=== PATIENT | male | born 1980 | race Caucasian/White ===

== ENCOUNTER 2018-01-10 10:23 | Emergency (ER) | payer OTHER ==
[~2018-01-10] VITALS: Ht 182.9 cm; Wt 84.4 kg
[~2018-01-10 10:23] MED LIST: AMOXICILLIN875 M1 PO; AUGMENTIN 875-1 EACH PO; BACTRIM DS TAB1 EACH PO; FIORICET 50-301 EACH PO; PERCOCET 5-3251 EACH PO; ZOFRAN ODT4 M1 PO
--- NOTE | 2018-01-10 13:23 | ED NECK/BACK PAIN COMPLAINT ---
History of Present Illness General Chief Complaint: General Adult Stated Complaint: C/O PAIN IN RT SIDE OF NECK Source: patient Exam Limitations: no limitations Vital Signs & Intake/Output Vital Signs & Intake/Output Vital Signs Date Time Temp Pulse Resp B/P B/P Pulse O2 O2 Flow FiO2 Mean Ox Delivery Rate 01/10 1226 Room Air 01/10 1028 98.4 95 18 143/93 98 Room Air Allergies Coded Allergies: bee venom protein (honey bee) (Severe, SWELLING 03/17/17) Reconcile Medications Amoxicillin 500 MG CAPSULE 1 CAP PO TID sore thoat Ketorolac Tromethamine 10 MG TABLET 1 TAB PO Q6P PRN sore throat pain patient received IM ketorolac in the emergency department Triage Note: 37 YO MALE TO TRIAGE FOR EVAL OF R SIDED NECK PAIN THAT RADIATES TO HEAD SINCE THIS AM, DENIES INJURY TO NECK. Triage Nurses Notes Reviewed? yes Onset: Gradual Duration: constant Quality/Severity: severe, sharpness HPI: Patient presents for evaluation of a severe constant right neck pain radiating up into the face that began this morning. Patient states it's a sharp tearing kind of pain that gets worse with swallowing and with head movement. He denies any associated fever or cold symptoms. He denies any known ill contacts. He denies prior episodes. Past History Travel History Traveled to [place] past 21 day No Medical History Any Pertinent Medical History? 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 No Review of Systems Review of Systems Constitutional: Reports: no symptoms. Eyes: Reports: no symptoms. Ears, Nose, Throat, Mouth: Reports: see HPI. Respiratory: Reports: no symptoms. Cardiovascular: Reports: no symptoms. Gastrointestinal/Abdominal: Reports: no symptoms. Musculoskeletal: Reports: see HPI. Skin: Reports: no symptoms. Neurological/Psychological: Reports: no symptoms. All Other Systems: Reviewed and Negative Physical Exam Physical Exam Neck: see below Comments: Patient examined after treatment with I am Toradol Gen.: Well-nourished, well-developed, no acute respiratory distress. Mildly uncomfortable appearing secondary to right neck pain. Head: Normocephalic, atraumatic. Eyes: Normal inspection bilaterally Ears: Normal inspection bilaterally, normal right TM and canal Nose: Normal inspection Throat/mouth : Moist mucosa Neck: Supple, full range of motion, no goiter, no tenderness or pain with range of motion, mild tenderness with palpation of the right sternocleidomastoid, carotid pulses are equal and normal bilaterally Heart: Regular rate and rhythm, no murmurs rubs or gallops Lungs: Clear to auscultation over the right chest with normal air entry Chest: Nontender Back: Normal range of motion Abdomen: Soft, nontender, nondistended, normal bowel sounds Extremities: Normal range of motion grossly, equal radial pulses, no cyanosis clubbing or edema Neurologic: Cranial nerves grossly intact, speech is clear Skin: warm and dry, no ecchymoses, no erythema Psychiatric: Calm, cooperative, no apparent delusions or hallucinations Lymphatic: Mild shotty anterior cervical lymphadenopathy (nontender) Core Measures CVA/TIA Diagnosis: No Progress Differential Diagnosis: herniated disc, myofascial strain, PHARYNGITIS, CAROTID DISSECTION Plan of Care: Orders Procedure Date/time Status CBC WITHOUT DIFFERENTIAL 01/10 1323 Complete BASIC METABOLIC PANEL 01/10 1323 Complete Laboratory Tests 01/10/18 1415: Anion Gap 10, Estimated GFR > 60, BUN/Creatinine Ratio 21.3, Glucose 90, Calcium 9.6, CBC w Diff NO MAN DIFF REQ, RBC 4.75, MCV 90.7, MCH 31.5 H, MCHC 34.7, RDW 12.7, MPV 8.0, Gran % 81.0 H, Lymphocytes % 11.2 L, Monocytes % 6.9, Eosinophils % 0.7, Basophils % 0.2, Absolute Granulocytes 10.0 H, Absolute Lymphocytes 1.4, Absolute Monocytes 0.9 H, Absolute Eosinophils 0.1, Absolute Basophils 0 Diagnostic Imaging: Discussed w/RAD: CT Scan. Radiology Impression: PATIENT: EWELINA EDWARDS PRESENT AGE: 37 PATIENT ACCOUNT NO: [id number] : 78 LOCATION: [facility] ORDERING PHYSICIAN: Merritt Posadas MD SERVICE DATE: 01/10/18 EXAM TYPE: CAT - CT HEAD ANGIOGRAM; CT NECK ANGIOGRAM EXAMINATION: CT ANGIOGRAM NECK WITH CONTRAST CT ANGIOGRAM BRAIN WITH CONTRAST CLINICAL INFORMATION: Severe right- sided neck and facial pain. COMPARISON: Head CT 04/12/2016. TECHNIQUE: Test bolus sequences followed by intravenous administration 95 mL of Optiray 320. Helical imaging was performed in the axial plane from the thoracic inlet to the skull vertex. Delayed postcontrast imaging of the head was also performed. The data was processed at the medical technologist generalist workstation for generation of MIP sequences. Angled MIPs and volume rendered reformatted images were also generated at an offline 3D workstation. Stenoses are assessed in accordance with NASCET criteria unless otherwise indicated. FINDINGS: BRAIN: There is no intracranial hemorrhage, hydrocephalus, extra-axial surface collection, midline shift, or other herniation pattern. Lilly to white matter differentiation is diffusely maintained without evidence of an evolved acute territorial infarct. The basilar cisterns are preserved. No significant soft tissue abnormality. No acute osseous abnormality. There are retention cysts within the maxillary sinuses bilaterally. CERVICAL SOFT TISSUES AND LUNG APICES: There is soft tissue swelling along the undersurface of the right tonsillar pillar associated with effacement of the right piriform sinus and partial effacement of the right vallecula. There is a possible small subcentimeter peritonsillar abscess along the anterior margin of the undersurface of the right palatine tonsil on image 317 of series 2. Findings are favored to be secondary to right-sided palatine tonsillitis/pharyngitis which can be correlated with direct visual inspection. In the absence of visual signs of infection in these areas, it would be difficult to exclude an underlying lesion. Calcified tonsilliths within the palatine tonsils bilaterally. There are nonpathologic size criteria lymph nodes throughout the suprahyoid and infrahyoid neck. NECK CTA: There is a classic 3 vessel configuration of the aortic arch. Proximal arch vessels are non-stenotic. The vertebral arteries are codominant. No significant ostial stenosis is visualized on either side. Both vertebral arteries are widely patent throughout their extracranial cervical course. Both common and internal carotid arteries are normal in course and caliber. BRAIN CTA: There is normal opacification of major intracranial arteries. No focal flow-limiting stenosis, discrete proximal large artery occlusion, or saccular intradural aneurysm is identified. Timing of the contrast bolus allows assessment of the major dural venous sinuses, which all opacify normally. IMPRESSION: - There are no significant vascular findings within the head or neck. No evidence of arterial dissection. No acute intracranial findings. - There is soft tissue swelling along the undersurface of the right tonsillar pillar associated with effacement of the right piriform sinus and partial effacement of the right vallecula. There is a possible small subcentimeter peritonsillar abscess along the anterior margin of the undersurface of the right palatine tonsil on image 317 of series 2. Findings are favored to be secondary to right-sided palatine tonsillitis/pharyngitis which can be correlated with direct visual inspection. In the absence of visual signs of infection in these areas, it would be difficult to exclude an underlying lesion. DICTATED BY: Merritt Dillard MD DATE/TIME DICTATED:01/10/181555 CLIMATOLOGY PROFESSOR:HAYLEE DATE/TIME TRANSCRIBED:01/10/181555 CONFIDENTIAL, DO NOT COPY WITHOUT APPROPRIATE AUTHORIZATION. <Electronically signed in Other Vendor System> SIGNED BY: Merritt Dillard MD 01/10/18 1616 Comments: 01/10/2018 5:09:50 PM I have updated Wm on his test results. Departure Departure Disposition: HOME OR SELF CARE Condition: Stable Clinical Impression Primary Impression: Tonsillitis Secondary Impressions: Pharyngitis Qualifiers: Pharyngitis/tonsillitis etiology: unspecified etiology Qualified Code: J02.9 - Acute pharyngitis, unspecified Referrals: Patient Has No Primary Care Dr (PCP/Family) Additional Instructions: Amoxicillin as prescribed. Ketorolac as needed for pain. Follow-up with your primary care physician in 72 hours for reevaluation if not improving. Return if any concerns or sudden worsening. If you do not currently have a primary care physician then please contact the [place] primary care practice at the following phone number: . Please note that there might be incidental findings in your evaluation that are unrelated to the current emergency department visit. Please notify your primary care doctor about this emergency department visit in order to obtain and review all of the testing performed so that these incidental findings can be monitored as needed. If you had an x-ray performed, please understand that some fractures or other findings may not be seen on the initial set of x-rays. If your symptoms persist you might need a repeat set of x-rays to check for such a fracture. If you had a laceration evaluated, please understand that foreign bodies such as glass or wood may not be visible to the naked eye or on plain x-rays. If the wound becomes red, swollen, increasingly more painful or if there is any drainage from the wound, please have it reevaluated by a physician for the possibility of a retained foreign body. If you're unable to follow up as outlined in the discharge instructions please return to the emergency department. Thank you for choosing the [facility] Emergency Department for your care. It was a pleasure to serve you today. Merritt Posadas M.D. [facility] Departure Forms: Customer Survey General Discharge Information Prescriptions: Current Visit Scripts Amoxicillin 1 CAP PO TID #30 CAP Ketorolac Tromethamine 1 TAB PO Q6P PRN sore throat pain #16 TAB patient received IM ketorolac in the emergency department
[2018-01-10 14:22] LABS: ABSOLUTE BASOPHIL COUNT 0 /CUMM (0.0-0.2); ABSOLUTE EOSINOPHIL COUNT 0.1 /CUMM (0.0-0.7); ABSOLUTE LYMPH COUNT 1.4 /CUMM (1.2-3.4); ABSOLUTE MONOCYTE COUNT 0.9 /CUMM (0.10-0.60); BASOPHIL % 0.2 % (0.0-2.0); EOSINOPHIL % 0.7 % (0-5); MEAN CORPUSCULAR HGB 31.5 PG (27.0-31.0); MEAN CORPUSCULAR HGB CONC 34.7 G/DL (33.0-37.0); MEAN CORPUSCULAR VOLUME 90.7 FL (80.0-94.0); PLATELET COUNT 260 /CUMM (130-400); RBC DISTRIBUTION WIDTH 12.7 % (11.5-14.5); RED BLOOD CELL CT 4.75 /CUMM (4.70-6.10); WHITE BLOOD CELL COUNT 12.4 /CUMM (4.8-10.8)
--- NOTE | 2018-01-10 16:16 | CT SCAN REPORT ---
EXAMINATION: CT ANGIOGRAM NECK WITH CONTRAST CT ANGIOGRAM BRAIN WITH CONTRAST CLINICAL INFORMATION: Severe right-sided neck and facial pain. COMPARISON: Head CT 04/12/2016. TECHNIQUE: Test bolus sequences followed by intravenous administration 95 mL of Optiray 320. Helical imaging was performed in the axial plane from the thoracic inlet to the skull vertex. Delayed postcontrast imaging of the head was also performed. The data was processed at the chief ultrasound technologist workstation for generation of MIP sequences. Angled MIPs and volume rendered reformatted images were also generated at an offline 3D workstation. Stenoses are assessed in accordance with NASCET criteria unless otherwise indicated. FINDINGS: BRAIN: There is no intracranial hemorrhage, hydrocephalus, extra-axial surface collection, midline shift, or other herniation pattern. Lilly to white matter differentiation is diffusely maintained without evidence of an evolved acute territorial infarct. The basilar cisterns are preserved. No significant soft tissue abnormality. No acute osseous abnormality. There are retention cysts within the maxillary sinuses bilaterally. CERVICAL SOFT TISSUES AND LUNG APICES: There is soft tissue swelling along the undersurface of the right tonsillar pillar associated with effacement of the right piriform sinus and partial effacement of the right vallecula. There is a possible small subcentimeter peritonsillar abscess along the anterior margin of the undersurface of the right palatine tonsil on image 317 of series 2. Findings are favored to be secondary to right-sided palatine tonsillitis/pharyngitis which can be correlated with direct visual inspection. In the absence of visual signs of infection in these areas, it would be difficult to exclude an underlying lesion. Calcified tonsilliths within the palatine tonsils bilaterally. There are nonpathologic size criteria lymph nodes throughout the suprahyoid and infrahyoid neck. NECK CTA: There is a classic 3 vessel configuration of the aortic arch. Proximal arch vessels are non-stenotic. The vertebral arteries are codominant. No significant ostial stenosis is visualized on either side. Both vertebral arteries are widely patent throughout their extracranial cervical course. Both common and internal carotid arteries are normal in course and caliber. BRAIN CTA: There is normal opacification of major intracranial arteries. No focal flow-limiting stenosis, discrete proximal large artery occlusion, or saccular intradural aneurysm is identified. Timing of the contrast bolus allows assessment of the major dural venous sinuses, which all opacify normally. IMPRESSION: - There are no significant vascular findings within the head or neck. No evidence of arterial dissection. No acute intracranial findings. - There is soft tissue swelling along the undersurface of the right tonsillar pillar associated with effacement of the right piriform sinus and partial effacement of the right vallecula. There is a possible small subcentimeter peritonsillar abscess along the anterior margin of the undersurface of the right palatine tonsil on image 317 of series 2. Findings are favored to be secondary to right-sided palatine tonsillitis/pharyngitis which can be correlated with direct visual inspection. In the absence of visual signs of infection in these areas, it would be difficult to exclude an underlying lesion.
[2018-01-10] MEDS ORDERED: AMOXICILLIN500 M2 PO (17:14)
[2018-01-10] MEDS ORDERED: KETOROLAC TROME10 M1 PO (17:14)
[2018-01-10 17:21] VITALS: BP 136/88
== END 2018-01-10 17:22 ==
LOC: ERH 10:23
PROVIDERS: Emergency Medicine
DX: J03.90 Acute tonsillitis, unspecified (principal); J02.9 Acute pharyngitis, unspecified
CPT/HCPCS: 96372; J1885